=== PATIENT | female | born 1935 | race Asian ===

== ENCOUNTER 2017-10-02 12:35 | Outpatient (CLI) | payer MEDICARE ==
--- NOTE | 2017-10-02 14:40 | XRay Report ---
Left hand, one view. History: Pain. Findings: An AP view of the left hand demonstrate a spiral fracture of the fifth metacarpal. On this single view, there is no evidence of significant angulation or displacement. Mild arthritic changes are seen in the carpal metacarpal row. No other focal findings are seen. Impression: Spiral fracture of the fifth metacarpal bone.
== END 2017-10-02 12:36 | disposition home or self-care (01) ==
LOC: SPVIMAG 12:35
PROVIDERS: ATTEND Internal Medicine
DX: S62.397A Other fracture of fifth metacarpal bone, left hand, initial encounter for closed fracture (principal); M19.042 Primary osteoarthritis, left hand; X58.XXXA Exposure to other specified factors, initial encounter; Y93.89 Activity, other specified; Y92.89 Other specified places as the place of occurrence of the external cause; Y99.8 Other external cause status